=== PATIENT | female | born 2000 | race Caucasian/White ===

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

== ENCOUNTER 2021-09-06 11:26 | Emergency (ER) | payer MEDICAID ==
[~2021-09-06] VITALS: Ht 167.6 cm; Wt 63.0 kg
[2021-09-06 11:37] VITALS: BP 120/78
[2021-09-06] MEDS ORDERED: ACETAMINOPHEN 325 MG TAB PO ONE (13:25)
[2021-09-06] MEDS ORDERED: ACET-10509 PO (13:35)
[2021-09-06 13:49] VITALS: BP 114/65
--- NOTE | 2021-09-06 13:49 | NUR ---
Patient discharged with v/s stable. Written and verbal after care instructions given and explained. Patient verbalized understanding. Ambulatory with to car. All questions addressed prior to discharge. Advised to follow up with PMD.
== END 2021-09-06 13:49 | disposition home or self-care (01) ==
LOC: MED 11:26
DX: R51.9 Headache, unspecified (principal); J45.909 Unspecified asthma, uncomplicated; Z79.899 Other long term (current) drug therapy
CPT/HCPCS: 99282

== ENCOUNTER 2021-12-23 11:18 | Emergency (ER) | payer MEDICAID ==
[~2021-12-23] VITALS: Ht 167.6 cm; Wt 61.7 kg
[~2021-12-23 11:18] MED LIST changes: +ACET-10509 PO
[2021-12-23 11:30] VITALS: BP 126/79
--- NOTE | 2021-12-23 12:26 | NUR ---
lab at bedside
[2021-12-23 12:38] LABS: BASOPHILS # (AUTO) 0.1 K/uL (0.00-0.22); BASOPHILS % (AUTO) 1.1 % (0.0-2.0); EOSINOPHILS # (AUTO) 0.4 K/uL (0-0.4); EOSINOPHILS % (AUTO) 5.5 % (0.0-4.0); HEMOGLOBIN 13.7 g/dL (12.0-16.0); LYMPHOCYTES # (AUTO) 2.3 K/uL (2.5-16.5); LYMPHOCYTES % (AUTO) 34.8 % (20.5-51.1); MEAN CORPUSCULAR HEMOGLOBIN 27 pg (27-31); MEAN CORPUSCULAR HGB CONC 34 g/dL (33-37); MEAN CORPUSCULAR VOLUME 80.6 fL (80-94); MONOCYTES # (AUTO) 0.8 K/uL (0.8-1.0); MONOCYTES % (AUTO) 12.4 % (1.7-9.3); NEUTROPHILS # (AUTO) 3.1 K/uL (1.8-7.7); NEUTROPHILS % (AUTO) 46.2 % (42.2-75.2); PLATELET COUNT (AUTO) 268 K/uL (140-450); RED BLOOD CELL COUNT(AUTO) 5.09 MIL/uL (4.20-5.40); RED CELL DISTRIBUTION WIDTH 14.6 % (11.6-13.7); WHITE BLOOD COUNT (AUTO) 6.7 K/uL (4.5-11.0)
[2021-12-23 12:51] LABS: ANION GAP 10.4 (8-16); CARBON DIOXIDE 28.5 mmol/L (21-32); CREATININE 0.8 mg/dL (0.6-1.3); POTASSIUM 3.9 mmol/L (3.5-5.1)
--- NOTE | 2021-12-23 13:09 | NUR ---
PT TRANSPORTED TO [facility] VIA WHEELCHAIR
[2021-12-23 13:32] LABS: APPEARANCE,URINE CLOUDY (CLEAR); BILIRUBIN,URINE NEGATIVE (NEGATIVE); BLOOD, URINE NEGATIVE (NEGATIVE); COLOR,URINE YELLOW (YELLOW); LEUKOCYTE ESTERASE ,URINE 1+ (NEGATIVE); NITRITE, URINE NEGATIVE (NEGATIVE); UGLUCOSE NEGATIVE (NEGATIVE)
[2021-12-23 13:44] LABS: RBC,URINE 0-5 /HPF (0-5)
[2021-12-23] MEDS ORDERED: MIRABULK PO (14:07)
[2021-12-23 14:16] VITALS: BP 96/73
--- NOTE | 2021-12-23 14:17 | NUR ---
Patient discharged with v/s stable. Written and verbal after care instructions given and explained. Patient alert, oriented and verbalized understanding of instructions. Ambulatory to car. All questions addressed prior to discharge. ID band removed. Patient advised to follow up with PMD. Rx of MIRALAX given. Patient educated on indication of medication including possible reaction and side effects. Opportunity to ask questions provided and answered.
[2021-12-26] MEDS ORDERED: CEPH-588 PO (07:50)
== END 2021-12-23 14:16 | disposition home or self-care (01) ==
LOC: MED 11:18
DX: N39.0 Urinary tract infection, site not specified (principal); K59.00 Constipation, unspecified
CPT/HCPCS: 36415; 74018; 80048; 81001; 81025; 85025; 87086; 99284

== ENCOUNTER 2023-04-10 14:10 | Emergency (ER) | payer MEDICAID ==
[~2023-04-10] VITALS: Ht 167.6 cm; Wt 64.4 kg
[~2023-04-10 14:10] MED LIST changes: +CEPH-588 PO; +MIRABULK PO
[2023-04-10 14:15] VITALS: BP 108/74; PULSE 80; RESP 19; TEMP 97.1; O2SAT 100
[2023-04-10] MEDS ORDERED: IBUP-2213 PO (15:25)
[2023-04-10 16:08] VITALS: O2SAT 100
== END 2023-04-10 15:30 | disposition home or self-care (01) ==
LOC: MED 14:10
DX: R07.89 Other chest pain (principal); J45.909 Unspecified asthma, uncomplicated; Z79.899 Other long term (current) drug therapy
CPT/HCPCS: 71045; 99283